=== PATIENT | male | born 1950 | race Caucasian/White ===

== ENCOUNTER 2023-11-29 11:59 | Emergency (ER) | payer MEDICARE, BC, SELFPAY ==
[2023-11-29 12:05] VITALS: BP 122/67; PULSE 56; RESP 14; TEMP 36.6; O2SAT 98
--- NOTE | 2023-11-29 12:40 | DI.RAD_ITS ---
Exam(s) XR ANKLE RT COMPLETE EXAM: XR ANKLE RT COMPLETE CLINICAL HISTORY: ankle pain. TECHNIQUE: 2D digital imaging was performed. COMPARISON: No exams were available for comparison FINDINGS: 3 views Soft tissue swelling noted medially but no evidence of fracture or widening the ankle mortise. Talar dome appears unremarkable. Incidentally noted is thickening of the Achilles tendon, abnormal increased density in the pre Achill es fat, and calcification at the insertional aspect of the Achilles on the posterior calcaneus. Ther e is no inferior calcaneal spur. IMPRESSION: No ankle fracture evident nor widening of the mortise. Soft tissue swelling medially. Thickened Achilles tendon. DATA REPOSITORY: RADIATION DOSE DELIVERED:
--- NOTE | 2023-11-29 14:35 | W.ED.GENAD ---
Discharge Plan Discharge Details Chief Complaint: Orthopedic Primary Care Provider: Unknown,Unknown ED Provider: Rex Manzano [facility] General Date/Time Provider Initiated Documentation: 11/29/23 12:07. HPI Narrative: [ ] year-old [ ] presents to ED today by [ ] with a chief complaint of [ ] with onset [ ]. Quality described as [ ], [ ] radiation to [ ]. Severity is described as [ ]/10. Palliating factors include [ ]. Provoking factors include [ ]. Events leading up to the incident/Associated Symptoms: [ ]. Patient [ ] anticoagulated. Related Data Allergies Allergy/AdvReac Type Severity Reaction Status Date / Time No Known Allergies Allergy Verified 11/29/23 12:10 General Stated Complaint: Orthopedic MARLENA: 3 Review of Systems All systems reviewed & are unremarkable except as noted in HPI and below Exam Narrative Exam Narrative: GENERAL APPEARANCE: Well-nourished, non-toxic, awake and alert, atraumatic, no acute distress. SKIN: Warm, pink, dry, intact, without rashes/lesions/ulcerations. HEAD: Normocephalic, atraumatic, normal hair distribution for gender/age. EYES: Pupils PERRLA, EOMs intact without nystagmus, normal conjunctiva, no exudates on lids/lashes. ENT: Nares patent, no circumoral cyanosis, no facial swelling NECK: Supple, trachea midline, painless cervical ROM. LUNGS/CHEST: Lungs CTA bilaterally, non-labored respirations, normal A/P diameter, symmetrical expansion, no chest wall deformity HEART (CV/PV): Regular rate and rhythm without murmur, no peripheral edema, no JVD. ABDOMEN: Soft, non-distended, no guarding. MSK: Normal ROM, no swelling/deformity to bilateral UEs or LEs, moving all extremities without weakness, no cyanosis, spine midline without tenderness, normal curvature. NEURO: Mental Status AAOx4 - alert to person, place, time, events No facial droop, no forehead involvement. Motor: No focal weakness - strength 5/5 in bilateral UEs and LEs, proximal and distal, symmetric. Sensory: sensation intact to light touch globally. Gait normal: patient ambulated without ataxia into ED room. PSYCH: euthymic, cooperative, pleasant, appropriate speech Course Vital Signs Vital signs: Vital Signs Temperature 36.6 C 11/29/23 12:05 Pulse 56 L 11/29/23 12:05 Respiratory Rate 14 11/29/23 12:05 Blood Pressure 122/67 11/29/23 12:05 Pulse Oximetry 98 11/29/23 12:05 Temperature 36.6 C 11/29/23 12:05 Temperature Source Skin 11/29/23 12:05 Pulse 56 L 11/29/23 12:05 Respiratory Rate 14 11/29/23 12:05 Blood Pressure 122/67 11/29/23 12:05 Blood Pressure Position Sitting 11/29/23 12:05 Pulse Oximetry 98 11/29/23 12:05 Oxygen Delivery Method Room Air 11/29/23 12:05 Oxygen Flow Rate 0 11/29/23 12:05 Pain Level 8 11/29/23 12:05 Medical Decision Making This dictation utilizes [id number] dictation software and may contain unedited grammatical errors. [ ] presents to ED today with a chief complaint of [ ]. [ ]. Patients' medical history: [ ]. Family and social history: [ ]. Pertinent exam findings / vital signs include [ ]. Differential / pathologies of concern include [ ]. Diagnostic studies of: -[ ]. Interventions of: -[ ]. ED Course/Assessment/Plan: [ ]. Findings not consistent with [ ]. Disposition of [ ]. Patient verbalized understanding of the plan and return to ED criteria and engaged in shared decision making. Quality:SDOH Health Related Social Needs: No Data to Display [facility] Social History Smoking risk assessment performed?: No
--- NOTE | 2023-12-01 09:41 | NUR.NOTE ---
Nursing Note: Pt was seen on Wednesday and left before getting his XRay results. He called to get them. I asked that Guadalupe give him a call back after reviewing the reading to go over management options since I am not familiar with management for the findings. BRYCE Lees is calling to discuss and give the results per patient request.
--- NOTE | 2023-12-01 09:43 | ED.FU.B_ITS ---
Date of service: 12/01/23 Time of Service: 09:43 Follow Up Plan: Patient called nursing staff to request xr result, he had been here Wednesday but eloped prior to getting ankle XR results. Called, left message requesting call back to discuss. Report from radiologist date 11/29/23 FINDINGS: 3 views Soft tissue swelling noted medially but no evidence of fracture or widening the ankle mortise. Talar dome appears unremarkable. Incidentally noted is thickening of the Achilles tendon, abnormal increased d ensity in the pre Achilles fat, and calcification at the insertional aspect of the Achilles on the posterior calcaneus. There is no inferior calcaneal spur. IMPRESSION: No ankle fracture evident nor widening of the mortise. Soft tissue swelling medially.
--- NOTE | 2023-12-01 13:06 | W.ED.FU ---
Date of service: 12/01/23 Time of Service: 13:06 Follow Up Plan: Patient called back. Discussed results of XR. Encouraged f/u with PCP. He asked about tx, he is already icing, advised elevation. He does not feel that he needs to come back to ED.
== END 2023-11-29 15:05 | disposition left against medical advice (07) ==
PROVIDERS: Emergency Provider Emergency Medicine
DX: M25.571 Pain in right ankle and joints of right foot (principal); R22.41 Localized swelling, mass and lump, right lower limb; Z53.21 Procedure and treatment not carried out due to patient leaving prior to being seen by health care provider
CPT/HCPCS: 73610

== ENCOUNTER 2024-11-20 12:39 | Outpatient (CLI) | payer MEDICARE, BC, SELFPAY ==
--- NOTE | 2024-11-20 12:15 | DI.RAD_ITS ---
Exam(s) XR FOOT LT COMPLETE EXAM: XR FOOT LT COMPLETE CLINICAL HISTORY: evaluate pathology,lt toe pain, lt 2nd pcp,m79.675. TECHNIQUE: 2D digital imaging was performed. COMPARISON: No exams were available for comparison FINDINGS: 3 views No evidence of acute fracture or diastasis of the Lisfranc joint. Great toe metatarsophalangeal joint appears unremarkable. The more medial of the 2 sesamoid bones subjacent to the great toe metatarsal head is noted to be bipartite. There is a small osteophytic density adjacent to the lateral aspect of the base of the proximal phalanx of the 3rd-middle toe. This does not have the appearance of acute fracture fragment. Tarsometatarsal joints appear unremarkable as do the hindfoot articulations. There is no posterior enthesophyte on the calcaneus and no inferior calcaneal spur., IMPRESSION: No significant acute osseous findings in the left foot. DATA REPOSITORY: RADIATION DOSE DELIVERED:
== END 2024-11-20 12:59 ==
PROVIDERS: Visit Provider Nurse Practitioner Family
DX: M79.675 Pain in left toe(s) (principal)
CPT/HCPCS: 73630

== ENCOUNTER 2024-11-20 14:10 | Outpatient (CLI) | payer MEDICARE, BC, SELFPAY ==
--- NOTE | 2024-11-20 | DI.RAD_ITS ---
Exam(s) XR RIBS RT W PA LAT CHEST EXAM: XR RIBS RT W PA LAT CHEST CLINICAL HISTORY: RIB PAIN ON RT SIDE,PLEURODYNIA,R07.81 TECHNIQUE: 2D digital imaging was performed. COMPARISON: No exams were available for comparison FINDINGS: Total 6 views RIBS FOUR VIEWS-RIGHT there is a subtle nondisplaced fracture of the right 10th rib. Possible very subtle adjacent nondisplaced fracture of the 11th rib. No other right rib findings.- CXR- 2 VIEWS: Heart size normal. The mediastinum is not widened. Calcified granuloma noted in the inferior aspect of the posterior basal segment of the right lower lobe. Another smaller granulomas noted in the lateral right lung base slightly higher up. No infiltrates nor pleural effusions and there is no evidence of pneumothorax. Heart size is normal and there is no significant mediastinal widening. IMPRESSION: 1. There is a subtle nondisplaced fracture of the right 10th rib and possibly even more subtle nondisplaced fracture of the adjacent 11th rib. No lung contusion or pneumothorax. Incidental note of benign granulomas as described above. DATA REPOSITORY: RADIATION DOSE DELIVERED:
== END 2024-11-20 14:30 ==
LOC: DI 14:12
PROVIDERS: Visit Provider Nurse Practitioner Family
DX: M79.675 Pain in left toe(s) (principal)
CPT/HCPCS: 71046; 71100; 73630

== ENCOUNTER 2025-01-26 22:03 | Outpatient (REF) | payer MEDICARE, BC, SELFPAY ==
[2025-01-26 22:13] LABS: Abs Immature Grans 0.28 10^3/uL (0.0-0.06); HCT 40.1 % (40.0-50.0); HGB 12.9 g/dL (13.5-17.5); Immature Grans % 4.2 %; MCH 29.3 pg (27.0-33.0); MCHC 32.2 % (32.0-36.0); MCV 91 fL (80-95); RBC 4.40 10^6/uL (4.36-5.78); RDW 15.9 % (11.8-14.1); RDW-SD 52.1 fL; WBC 6.62 10^3/uL (4.4-10.8)
[2025-01-26 22:29] LABS: Platelet Count 57 10^3/uL (130-400); RBC Morphology Normal
[2025-01-26 22:45] LABS: Anion Gap 6.8 mmol/L (3-11); BUN 16 mg/dL (7-18); CO2 31.2 mmol/L (21.0-32.0); Calcium 8.6 mg/dL (8.5-10.1); Chloride 105 mmol/L (98-107); Estimated GFR 92.29 (mL/min/1.73m2); Glucose 109 mg/dL (74-106); Potassium 4.0 mmol/L (3.5-5.1); Sodium 143 mmol/L (136-145); Vitamin B12 953 pg/mL (193-986)
== END 2025-01-26 22:04 | disposition home or self-care (01) ==
LOC: LBN 22:03
PROVIDERS: Visit Provider Physician Assistant Medical
DX: C93.11 Chronic myelomonocytic leukemia, in remission (principal)
CPT/HCPCS: 80048; 82607; 85025